=== PATIENT | female | born 1975 | race Caucasian/White ===

== ENCOUNTER → 2017-06-25 | Outpatient (CLI) | payer OTHER ==
[~2017-06-25] MED LIST: DAYPRO600 M1 PO; FLAGYL500 MG PO; FLEXERIL5 MG PO; MOTRIN800 MG PO; NEURONTIN300 MG PO; PHENERGAN25 M3 PO; TYLENOL W/CODEI1 TA7 PO; VALIUM10 MG; ZANTAC150 MG PO
--- NOTE | ~2017-06-25 | EKG ---
[place], [place] ELECTROCARDIOGRAM REPORT NAME: KJ ZAYAS UNIT #: [id number] ROOM: DOCTOR: JEAN MUNOZ MD BIRTHDATE: [birth year] DOS: 06/25/2017 TIME: 1209 hours. Normal sinus rhythm at 79 beats per minute. No evidence of ischemia or infarction. [place] interval is slightly shortened. No previous tracing is available for comparison. JEAN MUNOZ MD CM:EKGRPT:ELECTROCARDIOGRAM REPORT [id number] JEAN MUNOZ MD
== END | disposition home or self-care (01) ==
LOC: CARD 12:01
DX: Z51.81 Encounter for therapeutic drug level monitoring (principal); Z79.899 Other long term (current) drug therapy

== ENCOUNTER 2018-03-21 13:14 | Emergency (ER) | payer OTHER ==
[~2018-03-21] VITALS: Ht 170.1 cm; Wt 74.8 kg
[2018-03-21] MEDS ORDERED: Motrin,Rufen800 MG PO (16:01)
== END 2018-03-21 16:07 | disposition home or self-care (01) ==
LOC: ED 13:14
DX: M77.11 Lateral epicondylitis, right elbow (principal); Z98.51 Tubal ligation status

== ENCOUNTER 2018-06-09 16:00 | Emergency (ER) | payer OTHER ==
[~2018-06-09] VITALS: Ht 170.1 cm; Wt 72.6 kg
[~2018-06-09 16:00] MED LIST changes: +Motrin,Rufen800 MG PO
[2018-06-09 16:10] VITALS: BP 118/80
[2018-06-09] MEDS ORDERED: DOXYCYCLINE100 M3 PO (17:05)
== END 2018-06-09 17:07 | disposition home or self-care (01) ==
LOC: ED 16:00
DX: S80.861A Insect bite (nonvenomous), right lower leg, initial encounter (principal); Z79.1 Long term (current) use of non-steroidal anti-inflammatories (NSAID); Z79.899 Other long term (current) drug therapy; W57.XXXA Bitten or stung by nonvenomous insect and other nonvenomous arthropods, initial encounter; Y93.89 Activity, other specified; Y92.89 Other specified places as the place of occurrence of the external cause; Y99.8 Other external cause status

== ENCOUNTER 2018-12-05 22:23 | Emergency (ER) | payer OTHER ==
[~2018-12-05] VITALS: Ht 170.1 cm; Wt 72.6 kg
[~2018-12-05 22:23] MED LIST changes: +DOXYCYCLINE100 M3 PO
[2018-12-05 23:24] LABS: BASO % 0.3 % (0.0-1.0); EOS # 0.2 10*3/uL (0.0-0.4); EOS % 2.2 % (1.0-4.0); HEMATOCRIT 41.8 % (37.0-47.0); HEMOGLOBIN 13.8 g/dl (12.0-16.0); LYMPH # 2.8 10*3/uL (1.3-4.4); LYMPH % 24.7 % (27.0-41.0); MEAN CELL VOLUME 91.7 fl (81.0-99.0); MEAN CORPUSCULAR HGB 30.3 pg (27.0-31.0); MEAN PLATELET VOLUME 9.5 fl (9.6-12.3); MONO # 0.6 10*3/uL (0.1-1.0); NEUT # 7.5 10*3/uL (2.3-7.9); NEUT % 67.5 % (47.0-73.0); PLATELET COUNT AUTOMATED 344 10*3/uL (130-400); RED BLOOD COUNT 4.56 10*6/uL (4.10-5.10); RED CELL DISTRI WIDTH 12.9 % (0-14.5); WHITE BLOOD COUNT 11.2 10*3/uL (4.8-10.8)
[2018-12-05 23:34] LABS: ACT PARTIAL THROMBO TIME 18.7 SECONDS (20.8-31.5)
[2018-12-05 23:39] LABS: ALKALINE PHOSPHATASE 82 U/L (45-117); BUN 23 mg/dl (7-24); CHLORIDE 106 mmol/L (98-107); CREATININE 0.89 mg/dL (0.55-1.02); LIPASE 73 U/L (73-393); SGOT/AST 17 IU/L (3-35); SGPT/ALT 30 U/L (12-78); SODIUM 136 mmol/L (136-145); TOTAL PROTEIN 7.9 gm/dL (6.4-8.2)
[2018-12-06 00:28] VITALS: BP 110/60
[2018-12-06 01:41] LABS: BILIRUBIN NEGATIVE (NEGATIVE); BLOOD NEGATIVE (NEGATIVE); CLARITY SL CLOUDY (CLEAR); COLOR YELLOW (YELLOW); GLUCOSE NEGATIVE (NEGATIVE); KETONE TRACE (NEGATIVE); LEUKO ESTERASE NEGATIVE (NEGATIVE); NITRITE NEGATIVE (NEGATIVE); SPECIFIC GRAVITY 1.025 (1.005-1.030); UROBILINOGEN 0.2 E.U./dl (0.2-1.0)
[2018-12-06 01:48] LABS: EPITHELIAL CELLS 40-45
[2018-12-06 01:49] LABS: BACTERIA 1+
[2018-12-06] MEDS ORDERED: ZOFRAN4 MG PO (01:56)
== END 2018-12-06 02:20 | disposition home or self-care (01) ==
LOC: ED 22:23
PROVIDERS: Nurse Practitioner Family
DX: K52.89 Other specified noninfective gastroenteritis and colitis (principal); E87.6 Hypokalemia; Z98.51 Tubal ligation status

== ENCOUNTER → 2020-05-24 | Outpatient (CLI) | payer OTHER ==
[~2020-05-24] MED LIST changes: +ZOFRAN4 MG PO
== END | disposition home or self-care (01) ==
LOC: CARD 08:28
DX: Z51.81 Encounter for therapeutic drug level monitoring (principal); Z79.899 Other long term (current) drug therapy

== ENCOUNTER → 2020-07-01 | Outpatient (CLI) | payer OTHER | END | disposition home or self-care (01) | LOC: COVID19 11:40 | PROVIDERS: ATTEND Internal Medicine | DX: Z20.828 Contact with and (suspected) exposure to other viral communicable diseases (principal) ==

== ENCOUNTER 2020-09-08 13:06 | Emergency (ER) | payer OTHER ==
[~2020-09-08] VITALS: Wt 77.1 kg
[2020-09-08 13:12] VITALS: BP 127/84
== END 2020-09-08 14:20 | disposition home or self-care (01) ==
LOC: ED 13:06
DX: R05 Cough (principal); Z20.828 Contact with and (suspected) exposure to other viral communicable diseases; R50.9 Fever, unspecified; Z98.51 Tubal ligation status

== ENCOUNTER → 2020-09-30 | Outpatient (CLI) | payer OTHER ==
[2020-09-30 11:27] LABS: HEMATOCRIT 39.7 % (37.0-47.0); MEAN CELL VOLUME 95.4 fl (81.0-99.0); MEAN CORPUSCULAR HGB 30.3 pg (27.0-31.0); MEAN CORPUSCULAR HGB CONC 31.7 g/dl (33.0-37.0); MEAN PLATELET VOLUME 9.5 fl (9.6-12.3); RED BLOOD COUNT 4.16 10*6/uL (4.10-5.10); RED CELL DISTRI WIDTH 12.7 % (0-14.5); WHITE BLOOD COUNT 10.6 10*3/uL (4.8-10.8)
[2020-09-30 11:51] LABS: ALBUMIN 3.8 gm/dl (3.1-4.5); ALKALINE PHOSPHATASE 73 U/L (45-117); BUN 13 mg/dl (7-24); CHLORIDE 109 mmol/L (98-107); CHOLESTEROL 135 mg/dL (<200); CREATININE 0.72 mg/dL (0.55-1.02); FREE T4 0.83 ng/dl (0.76-1.46); HDL CHOLESTEROL 43 mg/dl (40-60); LDL CHOLESTEROL 67 mg/dL (9-159); POTASSIUM 4.4 mmol/L (3.5-5.1); SGOT/AST 8 IU/L (3-35); SGPT/ALT 22 U/L (12-78); SODIUM 141 mmol/L (136-145); TOTAL PROTEIN 7.4 gm/dL (6.4-8.2); TRIGLYCERIDES 127 mg/dl (<150); VLDL CHOLESTEROL 25 mg/dL (6-40)
[2020-09-30 12:28] LABS: VITAMIN D, 25-HYDROXY 20.5 ng/mL (30-100)
[2020-10-01 05:06] LABS: FOLLICLE STIMULATING HORMONE 12.7 mIU/mL (.); LUTEINIZING HORMONE 4.9 mIU/mL (.)
[2020-10-01 08:07] LABS: H PYLORI IGG AB 0.36 (0.00-0.79)
[2020-10-01 14:08] LABS: TESTOSTERONE FREE, (DIRECT) 2.3 pg/mL (0.0-4.2)
== END | disposition home or self-care (01) ==
LOC: LAB 10:50
PROVIDERS: ATTEND Family Medicine
DX: Z13.220 Encounter for screening for lipoid disorders (principal); E55.9 Vitamin D deficiency, unspecified; R45.86 Emotional lability; F31.9 Bipolar disorder, unspecified; R53.83 Other fatigue; N94.3 Premenstrual tension syndrome; F17.210 Nicotine dependence, cigarettes, uncomplicated; Z79.899 Other long term (current) drug therapy

== ENCOUNTER 2020-10-01 12:55 | Emergency (ER) | payer OTHER ==
[~2020-10-01] VITALS: Ht 170.1 cm; Wt 80.3 kg
[2020-10-01 13:03] VITALS: BP 136/90
[2020-10-01 13:30] LABS: BASO # 0.1 10*3/uL (0.0-0.1); BASO % 0.5 % (0.0-1.0); EOS # 0.2 10*3/uL (0.0-0.4); EOS % 1.9 % (1.0-4.0); LYMPH # 3.8 10*3/uL (1.3-4.4); LYMPH % 33.9 % (27.0-41.0); MEAN CELL VOLUME 94.7 fl (81.0-99.0); MEAN CORPUSCULAR HGB 30.3 pg (27.0-31.0); MEAN PLATELET VOLUME 9.5 fl (9.6-12.3); MONO # 0.4 10*3/uL (0.1-1.0); MONO % 3.7 % (3.0-9.0); NEUT # 6.7 10*3/uL (2.3-7.9); NEUT % 59.6 % (47.0-73.0); PLATELET COUNT AUTOMATED 352 10*3/uL (130-400); RED BLOOD COUNT 4.33 10*6/uL (4.10-5.10); RED CELL DISTRI WIDTH 12.7 % (0-14.5); WHITE BLOOD COUNT 11.2 10*3/uL (4.8-10.8)
[2020-10-01 13:47] LABS: ALBUMIN 3.7 gm/dl (3.1-4.5); ALKALINE PHOSPHATASE 71 U/L (45-117); BUN 9 mg/dl (7-24); CHLORIDE 109 mmol/L (98-107); CPK 80 U/L (26-192); CREATININE 0.64 mg/dL (0.55-1.02); POTASSIUM 4.1 mmol/L (3.5-5.1); SGOT/AST 10 IU/L (3-35); SGPT/ALT 22 U/L (12-78); SODIUM 142 mmol/L (136-145); TOTAL PROTEIN 7.3 gm/dL (6.4-8.2)
[2020-10-01 13:52] LABS: BILIRUBIN Negative (Negative); BLOOD 3+ (Negative); CLARITY Clear (Clear); COLOR Orange (Yellow); GLUCOSE Negative (Negative); KETONE Negative (Negative); LEUKO ESTERASE Trace (Negative); NITRITE Negative (Negative); PH 5.5 (4.5-8.0); UROBILINOGEN 0.2 E.U./dl (0.0-1.0)
[2020-10-01 13:52] LABS: ETHYL ALCOHOL < 3.0 mg/dl (<3)
[2020-10-01 13:59] LABS: BACTERIA 1+; EPITHELIAL CELLS 21-30; URINE AMPHETAMINES < 1000 (1000ng/ml); URINE BARBITURATES < 200 (200ng/ml); URINE BENZODIAZEPINES < 200 (200ng/ml); URINE CANNABINOIDS (THC) < 50 (50ng/ml); URINE COCAINE < 300 (300ng/ml); URINE METHADONE < 300 (300ng/ml); URINE OPIATES < 300 (300ng/ml)
[2020-10-01 14:00] LABS: URINE PHENCYCLIDINE < 25 (25ng/ml)
== END 2020-10-01 20:15 | disposition short-term general hospital (02) ==
LOC: ED 12:55
PROVIDERS: Emergency Medicine
DX: F32.9 Major depressive disorder, single episode, unspecified (principal); F41.9 Anxiety disorder, unspecified; Z79.899 Other long term (current) drug therapy; Z98.890 Other specified postprocedural states; Z20.822 Contact with and (suspected) exposure to COVID-19

== ENCOUNTER 2020-12-21 13:08 | Emergency (ER) | payer OTHER ==
[~2020-12-21] VITALS: Ht 170.1 cm; Wt 74.8 kg
[2020-12-21 13:27] VITALS: BP 114/77
[2020-12-21 14:23] LABS: BASO % 0.2 % (0.0-1.0); EOS # 0.4 10*3/uL (0.0-0.4); HEMATOCRIT 40.6 % (37.0-47.0); LYMPH # 2.4 10*3/uL (1.3-4.4); LYMPH % 17.5 % (27.0-41.0); MEAN CELL VOLUME 93.8 fl (81.0-99.0); MEAN PLATELET VOLUME 9.3 fl (9.6-12.3); MONO # 0.5 10*3/uL (0.1-1.0); MONO % 3.6 % (3.0-9.0); NEUT # 10.1 10*3/uL (2.3-7.9); PLATELET COUNT AUTOMATED 326 10*3/uL (130-400); RED BLOOD COUNT 4.33 10*6/uL (4.10-5.10); RED CELL DISTRI WIDTH 12.9 % (0-14.5); WHITE BLOOD COUNT 13.5 10*3/uL (4.8-10.8)
[2020-12-21 14:41] LABS: ALBUMIN 3.6 gm/dl (3.1-4.5); ALKALINE PHOSPHATASE 73 U/L (45-117); BUN 9 mg/dl (7-24); CHLORIDE 104 mmol/L (98-107); CREATININE 0.66 mg/dL (0.55-1.02); LIPASE 49 U/L (73-393); POTASSIUM 4.1 mmol/L (3.5-5.1); SGOT/AST 10 IU/L (3-35); SGPT/ALT 19 U/L (12-78); SODIUM 134 mmol/L (136-145); TOTAL PROTEIN 7.1 gm/dL (6.4-8.2)
[2020-12-21 14:51] LABS: BETA-HCG, QUANT < 1.0 mIU/mL (1-3)
[2020-12-21 16:01] LABS: BILIRUBIN Negative (Negative); BLOOD Negative (Negative); CLARITY Cloudy (Clear); COLOR Yellow (Yellow); GLUCOSE Negative (Negative); KETONE Negative (Negative); LEUKO ESTERASE 1+ (Negative); NITRITE Negative (Negative); PH 5.5 (4.5-8.0); SPECIFIC GRAVITY <= 1.005 (1.001-1.030); UROBILINOGEN 0.2 E.U./dl (0.0-1.0)
[2020-12-21 16:29] LABS: BACTERIA TRACE; WBC 16-20 wbc/hpf (0-5)
[2020-12-21 16:30] LABS: EPITHELIAL CELLS TNTC
== END 2020-12-21 16:39 | disposition left against medical advice (07) ==
LOC: ED 13:08
PROVIDERS: Emergency Medicine
DX: R10.13 Epigastric pain (principal); F17.200 Nicotine dependence, unspecified, uncomplicated; Z79.899 Other long term (current) drug therapy

== ENCOUNTER 2022-04-18 13:06 | Emergency (ER) | payer OTHER ==
[~2022-04-18] VITALS: Wt 68.9 kg
[2022-04-18 13:10] VITALS: BP 105/45
== END 2022-04-18 14:45 | disposition left against medical advice (07) ==
LOC: ED 13:06
DX: N20.0 Calculus of kidney (principal); Z53.21 Procedure and treatment not carried out due to patient leaving prior to being seen by health care provider

== ENCOUNTER 2022-04-19 11:05 | Emergency (ER) | payer OTHER ==
[~2022-04-19] VITALS: Ht 170.1 cm; Wt 68.9 kg
[2022-04-19 11:35] LABS: MEAN CELL VOLUME 93.9 fl (81.0-99.0); MEAN CORPUSCULAR HGB 30.5 pg (27.0-31.0); MEAN CORPUSCULAR HGB CONC 32.4 g/dl (33.0-37.0); MEAN PLATELET VOLUME 9.2 fl (9.6-12.3); PLATELET COUNT AUTOMATED 271 10*3/uL (130-400); RED BLOOD COUNT 3.94 10*6/uL (4.10-5.10); RED CELL DISTRI WIDTH 13.4 % (0-14.5); WHITE BLOOD COUNT 19.2 10*3/uL (4.8-10.8)
[2022-04-19 11:36] LABS: MANUAL DIFF REFLEX YES
[2022-04-19 11:46] LABS: BILIRUBIN Negative (Negative); BLOOD 2+ (Negative); CLARITY Cloudy (Clear); COLOR Dark Yellow (Yellow); GLUCOSE Negative (Negative); KETONE Negative (Negative); LEUKO ESTERASE 1+ (Negative); NITRITE Negative (Negative); SPECIFIC GRAVITY 1.015 (1.001-1.030)
[2022-04-19 12:00] LABS: POTASSIUM 4.6 mmol/L (3.5-5.1)
[2022-04-19 12:01] LABS: CREATININE 1.44 mg/dL (0.55-1.02)
[2022-04-19 12:05] LABS: WBC 31-40 wbc/hpf (0-5)
[2022-04-19 12:06] LABS: BACTERIA 1+; EPITHELIAL CELLS TNTC
[2022-04-19 12:15] LABS: PLATELET SUFFICIENCY NORMAL (NORMAL); TOTAL CELLS COUNTED 100 #CELLS; TOXIC GRANULATION SLIGHT; VACUOLATION OF NEUTROPHILS SLIGHT
[2022-04-19 12:16] LABS: BURR CELLS FEW; POLYCHROMASIA SLIGHT
[2022-04-19 14:40] VITALS: BP 93/54
== END 2022-04-19 15:27 | disposition short-term general hospital (02) ==
LOC: ED 11:05
PROVIDERS: Internal Medicine
DX: N39.0 Urinary tract infection, site not specified (principal); N13.2 Hydronephrosis with renal and ureteral calculous obstruction; Z98.51 Tubal ligation status

== ENCOUNTER → 2022-07-17 | Outpatient (CLI) | payer OTHER | END | disposition home or self-care (01) | LOC: LAB 15:20 | PROVIDERS: ATTEND Urology | DX: N20.0 Calculus of kidney (principal) ==

== ENCOUNTER → 2022-11-26 | Outpatient (CLI) | payer OTHER | END | disposition home or self-care (01) | LOC: CT 11:54 | PROVIDERS: ATTEND Urology | DX: N20.0 Calculus of kidney (principal); N13.39 Other hydronephrosis; K80.20 Calculus of gallbladder without cholecystitis without obstruction; N28.89 Other specified disorders of kidney and ureter; K76.89 Other specified diseases of liver ==

== ENCOUNTER 2024-11-21 00:56 | Emergency (ER) | payer OTHER ==
[~2024-11-21] VITALS: Ht 160 cm; Wt 79.6 kg
[2024-11-21] MEDS ORDERED: IOHEXOL 300 MG/ML 100 ML VIAL IV ONE (02:05)
[2024-11-21] MEDS ORDERED: Ketorolac Tromethamine 30 MG/ML VIAL IV ONE (02:05)
[2024-11-21] MEDS ORDERED: SODIUM CHLORIDE 0.9% 1,000 ML IV ONE ×2 (02:05→06:50)
[2024-11-21 02:35] LABS: BASO # 0.1 10*3/uL (0.0-0.1); BASO % 0.4 % (0.0-1.0); EOS # 0.1 10*3/uL (0.0-0.4); EOS % 0.8 % (1.0-4.0); HEMATOCRIT 35.8 % (37.0-47.0); MEAN CELL VOLUME 94.5 fl (81.0-99.0); MEAN CORPUSCULAR HGB 30.6 pg (27.0-31.0); MEAN CORPUSCULAR HGB CONC 32.4 g/dl (33.0-37.0); MEAN PLATELET VOLUME 9.4 fl (9.6-12.3); MONO # 0.5 10*3/uL (0.1-1.0); NEUT # 9.7 10*3/uL (2.3-7.9); NEUT % 77.6 % (47.0-73.0); PLATELET COUNT AUTOMATED 315 10*3/uL (130-400); RED BLOOD COUNT 3.79 10*6/uL (4.10-5.10); RED CELL DISTRI WIDTH 12.8 % (0-14.5); WHITE BLOOD COUNT 12.5 10*3/uL (4.8-10.8)
[2024-11-21 02:56] LABS: ALKALINE PHOSPHATASE 82 U/L (46-116); BUN 14 mg/dl (9-23); CHLORIDE 107 mmol/L (98-107); LIPASE 36 U/L (12-53); POTASSIUM 3.3 mmol/L (3.4-5.1); SGPT/ALT 22 U/L (5-49); TOTAL PROTEIN 6.5 gm/dL (6.0-8.0)
[2024-11-21] MEDS ORDERED: HYDROmorphONE Hydrochloride 0.5 MG/0.5 ML SYRINGE IV ONE (03:45)
[2024-11-21] MEDS ORDERED: Piperacillin Sodium/Tazobact 50 ML IV ONE (04:30)
[2024-11-21] MEDS ORDERED: SODIUM CHLORIDE 0.9% 1,000 ML IV SCH (04:35)
[2024-11-21] MEDS ORDERED: POTASSIUM CHLORIDE IN WATER 100 ML IV SCH (07:00)
[2024-11-21 14:00] VITALS: BP 132/62
== END 2024-11-21 15:52 | disposition short-term general hospital (02) ==
LOC: ED 00:56
PROVIDERS: Internal Medicine
DX: K81.0 Acute cholecystitis (principal); F32.A Depression, unspecified; F41.9 Anxiety disorder, unspecified; Z79.899 Other long term (current) drug therapy; Z98.51 Tubal ligation status

== ENCOUNTER 2025-02-24 14:11 | Emergency (ER) | payer OTHER ==
[~2025-02-24] VITALS: Ht 170.1 cm; Wt 73.5 kg
[2025-02-24 14:22] VITALS: BP 136/69
[2025-02-24] MEDS ORDERED: Acetaminophen/Hydrocodone 5 MG/325 MG TABLET PO ONE ×2 (16:40→17:45)
== END 2025-02-24 18:07 | disposition left against medical advice (07) ==
LOC: ED 14:11
DX: M54.50 Low back pain, unspecified (principal); M54.6 Pain in thoracic spine; F32.A Depression, unspecified; Z79.899 Other long term (current) drug therapy; Z87.442 Personal history of urinary calculi; X50.0XXA Overexertion from strenuous movement or load, initial encounter; Y93.89 Activity, other specified; Y92.89 Other specified places as the place of occurrence of the external cause; Y99.8 Other external cause status

== ENCOUNTER 2025-07-06 14:05 | Emergency (ER) | payer SELFPAY ==
[~2025-07-06] VITALS: Wt 75.7 kg
[2025-07-06 14:22] VITALS: BP 107/74
[2025-07-06] MEDS ORDERED: SODIUM CHLORIDE 0.9% 1,000 ML IV ONE (14:45)
[2025-07-06] MEDS ORDERED: Ondansetron Hydrochloride 4 MG/2 ML VIAL IV ONE (14:45)
[2025-07-06 15:35] LABS: BASO # 0.0 10*3/uL (0.0-0.1); BASO % 0.3 % (0.0-1.0); EOS # 0.0 10*3/uL (0.0-0.4); EOS % 0.7 % (1.0-4.0); MEAN CELL VOLUME 93.7 fl (81.0-99.0); MEAN CORPUSCULAR HGB 29.6 pg (27.0-31.0); MEAN PLATELET VOLUME 9.2 fl (9.6-12.3); MONO # 0.4 10*3/uL (0.1-1.0); MONO % 6.5 % (3.0-9.0); NEUT # 2.6 10*3/uL (2.3-7.9); NEUT % 45.6 % (47.0-73.0); NUCLEATED RED BLOOD CELL 0.0 % (0.0-0.0); NUCLEATED RED BLOOD CELL 0.0 10*3/uL (0.0-0.0); PLATELET COUNT AUTOMATED 295 10*3/uL (130-400); RED CELL DISTRI WIDTH 13.1 % (0-14.5)
[2025-07-06 15:59] LABS: BUN 12 mg/dl (9-23); SGPT/ALT 17 U/L (5-49)
[2025-07-06 17:48] LABS: BILIRUBIN Negative (Negative); BLOOD Negative (Negative); CLARITY Turbid (Clear); COLOR Yellow (Yellow); KETONE Negative (Negative); LEUKO ESTERASE Negative (Negative); NITRITE Negative (Negative); PH 6.5 (4.5-8.0); SPECIFIC GRAVITY 1.015 (1.001-1.030); UROBILINOGEN 0.2 E.U./dl (0.0-1.0)
[2025-07-06 17:49] LABS: BACTERIA 2+; EPITHELIAL CELLS 16-20
== END 2025-07-06 18:53 | disposition left against medical advice (07) ==
LOC: ED 14:05
PROVIDERS: Nurse Practitioner Family
DX: U07.1 COVID-19 (principal); F41.9 Anxiety disorder, unspecified; F32.A Depression, unspecified; Z53.29 Procedure and treatment not carried out because of patient's decision for other reasons; Z79.899 Other long term (current) drug therapy